=== PATIENT | female | born 1965 | race Caucasian/White ===

== ENCOUNTER 2019-08-22 07:22 | Day surgery (SDC) | payer OTHER ==
[2019-08-18 16:58] LABS: Absolute Lymphocytes (CBC) 2.5 K/uL (0.7-4.9); Basophils % 0.6 % (0-1.3); Hematocrit 37.4 % (36.0-45.0); Lymphocytes % 30.7 % (15.3-44.8); MPV 8.7 fL (7.6-11.3); RBC Red Blood Cell Count 4.49 M/uL (3.86-4.86)
[2019-08-18 17:02] LABS: Protime INR 0.99
[2019-08-18 17:14] LABS: Albumin 4.2 g/dL (3.4-5.0); Bilirubin Total 0.3 mg/dL (0.2-1.0); Potassium 3.9 mmol/L (3.5-5.1); Protein, Total 7.1 g/dL (6.4-8.2)
[2019-08-22] MEDS ORDERED: Ringers Lactate 1,000 ML IV ONE ×2 (07:28→10:50)
[2019-08-22] MEDS ORDERED: CEFAZOLIN/SWI 1gm 1 GM/10 ML SYR ONE (07:29)
[2019-08-22] MEDS ORDERED: LIDOCAINE 1% MPF 30 ML VIAL ONE (08:03)
[2019-08-22] MEDS ORDERED: FENTANYL CITR 100 MCG/2 ML ONE (08:28)
[2019-08-22] MEDS ORDERED: MIDAZOLAM HCL 2 MG/2 ML INJ ONE ×2 (08:28→08:47)
[2019-08-22] MEDS ORDERED: LIDOCAINE 2% MPF 5 ML VIAL ONE (08:28)
[2019-08-22] MEDS ORDERED: PROPOFOL 200 MG/20 ML VIAL IV ONE ×3 (08:28→10:25)
[2019-08-22] MEDS ORDERED: ONDANSETRON 4 MG/2 ML VIAL ONE (08:29)
[2019-08-22 11:30] VITALS: O2SAT 100
[2019-08-22 14:13] VITALS: BP 129/69; TEMP 97
== END 2019-08-22 12:15 | disposition home or self-care (01) ==
LOC: OR 07:22
PROVIDERS: ATTEND Podiatrist Foot Surgery
PROC: 0QBP0ZZ Excision of Left Metatarsal, Open Approach (ICD-10-PCS; 2019-08-22)
PROC: 0QSP04Z Reposition Left Metatarsal with Internal Fixation Device, Open Approach (ICD-10-PCS; principal; 2019-08-22 08:30)
DX: M20.12 Hallux valgus (acquired), left foot (principal); M21.622 Bunionette of left foot
CPT/HCPCS: 28299; 28113; 85025; 36415; 85610; 88300; 85730; 80053; J2704 ×3; J2250 ×2; J3010; J0690; J7120 ×2; J2405